=== PATIENT | female | born 1995 | race Caucasian/White ===

== ENCOUNTER 2018-08-16 20:19 | Emergency (ER) | payer MEDICAID ==
[2018-08-16] MEDS ORDERED: Dexamethasone 4 MG/ML SDV IM ONE (20:37)
[2018-08-16] MEDS ORDERED: Morphine 4 MG/ML Syringe SUBCUT ONE (20:38)
[2018-08-16] MEDS ORDERED: Ondansetron 4 MG Tab.DIS PO ONE (20:38)
--- NOTE | 2018-08-16 20:43 | EDM.PDOC ---
ED HPI GENERAL MEDICAL PROBLEM - General Chief Complaint: General Stated Complaint: back pain Time Seen by Provider: 08/16/18 20:30 Source of Information: Reports: Patient - History of Present Illness INITIAL COMMENTS - FREE TEXT/NARRATIVE: Patient is an obese 23 year old female who reports severe low back pain acute on chronic from scoliosis that required surgery when she was 17 She states she had a 90degree curve and has rods from neck to low back. She states she saw Kike in the clinic about 3 days ago and was started on Gabapentin which she has taken in the past. She is also on Meloxican once daily. She rates her pain a 9/ 10 states it starts in the low back and radiates to her toes. She states it is sharp and sometimes burning in natures. denies saddle anaesthesia or loss of bowl or bladder control. denies fever or truama. Onset: Gradual, Other (chronic) Location: Reports: Back Quality: Reports: Burning, Sharp Severity: Moderate Improves with: Reports: Medication Worsens with: Reports: Movement Associated Symptoms: Reports: No Other Symptoms Treatments CLINICAL RESEARCH ANALYST: Reports: Other (see below) (used home meds. ) Right Leg Pain Score (Numeric/FACES): 9 - Related Data Allergies Allergy/AdvReac Type Severity Reaction Status Date / Time No Known Allergies Allergy Verified 08/16/18 20:20 Home Meds: Home Meds Ibuprofen 200 mg PO ASDIRECTED PRN 07/08/18 [History] Gabapentin [Neurontin] 300 mg PO BID 08/16/18 [History] Meloxicam 15 mg PO DAILY 08/16/18 [History] Past Medical History Other HEENT History: dental surgery Musculoskeletal History: Reports: Back Pain, Chronic Other Musculoskeletal History: bulging L4-L5 - Past Surgical History Other Musculoskeletal Surgeries/Procedures:: spinal fusion - History Comment History Comment: Reviewed and agree with nursing assessment. Social & Family History - Family History Family Medical History: Noncontributory - Tobacco Use Smoking Status *Q: Current Every Day Smoker Years of Tobacco use: 5 Packs/Tins Daily: 1 - Caffeine Use Caffeine Use: Reports: Soda - Living Situation & Occupation Living situation: Reports: with Family (Reviewed and agree with nursing assessment.) ED ROS GENERAL - Review of Systems Review Of Systems: See Below Constitutional: Reports: No Symptoms. Denies: Fever, Chills, Malaise HEENT: Reports: No Symptoms Respiratory: Reports: No Symptoms Cardiovascular: Reports: No Symptoms GI/Abdominal: Reports: No Symptoms : Denies: Dysuria, Flank Pain, Frequency Musculoskeletal: Reports: Back Pain Skin: Reports: No Symptoms Neurological: Reports: Numbness (in toes) Psychiatric: Reports: No Symptoms Hematologic/Lymphatic: Reports: No Symptoms Immunologic: Reports: No Symptoms ED EXAM, GENERAL - Physical Exam Exam: See Below Exam Limited By: No Limitations General Appearance: Alert, WD/WN, No Apparent Distress Eye Exam: Bilateral Eye: PERRL Ears: Normal External Exam, Normal Canal, Hearing Grossly Normal Nose: Normal Inspection, Normal Mucosa Throat/Mouth: Normal Inspection, Normal Voice, No Airway Compromise Head: Atraumatic, Normocephalic Neck: Normal Inspection, Supple, Non-Tender Respiratory/Chest: No Respiratory Distress, Lungs Clear, Normal Breath Sounds, No Accessory Muscle Use, Chest Non-Tender Cardiovascular: Normal Peripheral Pulses, Regular Rate, Rhythm, No Edema, No Murmur, No Rub GI/Abdominal: Normal Bowel Sounds, Soft, Non-Tender Back Exam: Decreased Range of Motion (decreased ROM due to pain and physical limitations due to spine surgery) Extremities: Normal Inspection, No Pedal Edema, Normal Capillary Refill, Limited Range of Motion (due to pain). No: Slow Capillary Refill, Joint Swelling, Otf's Sign Neurological: Alert, Oriented, CN II-XII Intact, Normal Cognition, Other ( analgesic gait). No: Abnormal Reflexes Psychiatric: Depressed Mood Skin Exam: Warm, Dry, Intact, Normal Color, No Rash Course - Vital Signs Last Recorded V/S: Last Vital Signs Temp 98.2 F 08/16/18 20:21 Pulse 78 08/16/18 20:21 Resp 18 08/16/18 20:21 BP 142/76 H 08/16/18 20:21 Pulse Ox 98 08/16/18 20:21 - Orders/Labs/Meds Meds: Medications Discontinued Medications Generic Name Dose Route Start Last Admin Trade Name Freq PRN Reason Stop Dose Admin Dexamethasone 8 mg 08/16/18 20:37 Dexamethasone IM 08/16/18 20:38 ONETIME ONE Morphine Sulfate 4 mg 08/16/18 20:38 Morphine SUBCUT 08/16/18 20:39 ONETIME ONE Ondansetron HCl 4 mg 08/16/18 20:38 Zofran Odt PO 08/16/18 20:39 ONETIME ONE - Re-Assessments/Exams Free Text/Narrative Re-Assessment/Exam: 08/16/18 20:46 Patient was given Morphine 4mg SQ and zofran and decadron for pain control tonight She was advised to f/u with Kike SORIA for further evaluation/ Possible PT eval and further pain management is 3/5 days if needed, She had improvement of pain at d/c. Friend took her home. Departure - Departure Time of Disposition: 21:05 Disposition: Home, Self-Care 01 Condition: Good Clinical Impression: Adolescent idiopathic scoliosis of lumbosacral region Low back pain Qualifiers: Chronicity: chronic Back pain laterality: right Sciatica presence: with sciatica Sciatica laterality: sciatica of right side Qualified Code(s): M54.41 - Lumbago with sciatica, right side; G89.29 - Other chronic pain - Discharge Information Instructions: Back Injury Prevention, [id number], Heat Therapy, [id number] , Back Pain, Adult, [id number]-[id number], Scoliosis Referrals: Kike Julio PA-C [ED Midlevel Provider] - Forms: ED Department Discharge Additional Instructions: continue to use home medications. Use heat to the sore area. Gentle stretching Follow up with kike SORIA in 3-5 days if not improving. Return if worse.
[2018-08-16] MEDS ORDERED: Dexamethasone 4 MG/ML SDV ONE (20:57)
== END 2018-08-16 21:05 | disposition home or self-care (01) ==
LOC: CC.ED 20:19
DX: M41.126 Adolescent idiopathic scoliosis, lumbar region (principal); M54.41 Lumbago with sciatica, right side; F17.210 Nicotine dependence, cigarettes, uncomplicated; Z79.899 Other long term (current) drug therapy
CPT/HCPCS: 96372; 99282; A9270; J1100; J2270

== ENCOUNTER 2018-09-01 05:10 | Emergency (ER) | payer MEDICAID ==
--- NOTE | 2018-09-01 05:54 | EDM.PDOC ---
ED HPI GENERAL MEDICAL PROBLEM - General Chief Complaint: ENT Problem Stated Complaint: "I have a bug in my right ear" Time Seen by Provider: 09/01/18 05:52 Source of Information: Reports: Patient History Limitations: Reports: No Limitations - History of Present Illness INITIAL COMMENTS - FREE TEXT/NARRATIVE: Tamar is a 23 year old female who presents to the ED with c/o "a bug in her right ear." She reports around 0000 she woke to something crawling in her ear. She reports she tried flushing it out with water and tried using a Qtip but was unable to get anything out. She reports her ear is starting to hurt. No other complaints. - Related Data Allergies Allergy/AdvReac Type Severity Reaction Status Date / Time No Known Allergies Allergy Verified 08/16/18 20:20 Home Meds: Home Meds Ibuprofen 200 mg PO ASDIRECTED PRN 07/08/18 [History] Gabapentin [Neurontin] 300 mg PO BID 08/16/18 [History] Meloxicam 15 mg PO DAILY 08/16/18 [History] Azithromycin [Zithromax] 250 mg PO DAILY #6 tab 09/01/18 [Rx] Past Medical History Other HEENT History: dental surgery Musculoskeletal History: Reports: Back Pain, Chronic Other Musculoskeletal History: bulging L4-L5 - Past Surgical History Other Musculoskeletal Surgeries/Procedures:: spinal fusion - History Comment History Comment: Reviewed and agree with nursing assessment. Social & Family History - Family History Family Medical History: Noncontributory - Caffeine Use Caffeine Use: Reports: Soda - Living Situation & Occupation Living situation: Reports: with Family (Reviewed and agree with nursing assessment.) ED ROS ENT - Review of Systems Review Of Systems: ROS reveals no pertinent complaints other than HPI. ED EXAM, ENT - Physical Exam Exam: See Below Exam Limited By: No Limitations General Appearance: Alert, WD/WN, No Apparent Distress Ears: Hearing Grossly Normal, Canal Foreign Body (bug in right ear canal), TM Erythema (right). No: Auricular Erythema, Auricular Ecchymosis, Auricular Tenderness, Canal Discharge, TM Bulging, TM Fluid, TM Perforation Nose: Normal Inspection, Normal Mucousa, No Blood Mouth/Throat: Normal Inspection, Normal Gums, Normal Lips, Normal Oropharynx, Normal Teeth Head: Atraumatic, Normocephalic Neck: Normal Inspection, Supple, Non-Tender, Full Range of Motion Respiratory/Chest: No Respiratory Distress, Lungs Clear, Normal Breath Sounds, No Accessory Muscle Use, Chest Non-Tender Cardiovascular: Normal Peripheral Pulses, Regular Rate, Rhythm, No Edema, No Gallop, No JVD, No Murmur, No Rub Course - Re-Assessments/Exams Free Text/Narrative Re-Assessment/Exam: Boxelder Bug removed from right ear with irrigation per nurse. TM reddened. Departure - Departure Time of Disposition: 05:52 Disposition: Home, Self-Care 01 Condition: Good Clinical Impression: Foreign body in ear Qualifiers: Encounter type: initial encounter Laterality: right Qualified Code(s): T16.1XXA - Foreign body in right ear, initial encounter - Discharge Information *PRESCRIPTION DRUG MONITORING PROGRAM REVIEWED*: Not Applicable *COPY OF PRESCRIPTION DRUG MONITORING REPORT IN PATIENT LUDIVINA: Not Applicable Prescriptions: Azithromycin [Zithromax] 250 mg PO DAILY #6 tab Instructions: Ear Foreign Body, [id number] Forms: ED Department Discharge Additional Instructions: Azithromycin daily x 5 days Follow up as needed
== END 2018-09-01 06:00 | disposition home or self-care (01) ==
LOC: CC.ED 05:10
DX: T16.1XXA Foreign body in right ear, initial encounter (principal); X58.XXXA Exposure to other specified factors, initial encounter; M54.5 Low back pain; G89.29 Other chronic pain; Z79.1 Long term (current) use of non-steroidal anti-inflammatories (NSAID); Z79.899 Other long term (current) drug therapy
CPT/HCPCS: 69200; 99282